=== PATIENT | female | born 1990 | race Caucasian/White ===

== ENCOUNTER 2018-04-03 08:47 | Emergency (ER) | payer SELFPAY ==
[~2018-04-03] VITALS: Ht 160 cm; Wt 75.0 kg
[~2018-04-03 08:47] MED LIST: BACTRIM DS1 TAB PO; CIPRO500 MG OR; NAPROSYN500 MG OR; NO HOME MEDS; ULTRAM50 MG OR
[2018-04-03 09:51] VITALS: BP 119/87
== END 2018-04-03 09:59 | disposition home or self-care (01) | DRG 153 ==
LOC: ED 08:47
DX: J06.9 Acute upper respiratory infection, unspecified (principal); F17.200 Nicotine dependence, unspecified, uncomplicated

== ENCOUNTER 2018-07-10 08:45 | Emergency (ER) | payer SELFPAY ==
[~2018-07-10] VITALS: Ht 160 cm; Wt 100.0 kg
[2018-07-10] MEDS ORDERED: ZPAK PO (09:39)
[2018-07-10 09:47] VITALS: BP 138/67
== END 2018-07-10 10:08 | disposition home or self-care (01) | DRG 153 ==
LOC: ED 08:45
DX: J02.0 Streptococcal pharyngitis (principal); F17.200 Nicotine dependence, unspecified, uncomplicated

== ENCOUNTER 2018-10-17 10:10 | Emergency (ER) | payer SELFPAY ==
[~2018-10-17] VITALS: Ht 160 cm; Wt 105.0 kg
[~2018-10-17 10:10] MED LIST changes: +ZPAK PO
[2018-10-17 11:03] LABS: IMMATURE GRANULOCYTES 0.5 % (0.0-5.0); MEAN CELL VOLUME 92.4 fL CALC (80.0-100.0); MEAN CORPUSCULAR HGB 31.6 pG CALC (26.0-32.0); MEAN CORPUSCULAR HGB CONC 34.2 g/L CALC (32.0-36.0); NEUT# 14.76 thou/uL (2.00-7.15); RED BLOOD COUNT 4.97 mill/uL (4.20-5.60); RED CELL DISTRI WIDTH 11.8 % (11.5-15.5)
[2018-10-17 11:10] LABS: ALKALINE PHOSPHATASE 120 u/l (38-126); ANION GAP 18 (6-22 (CALC)); BUN 15 mg/dL (7-17); BUN/CREATININE RATIO 24 (12-20 (CALC)); CARBON DIOXIDE 23 mmol/l (22-30); CHLORIDE 104 mmol/l (95-108); CREATININE 0.6 mg/dL (0.5-1.0); GFR > 60 ML/MIN (>=60 (CALC)); GFR FOR AFR.AMER. > 60 ML/MIN (>=60 (CALC)); POTASSIUM 4.3 mmol/l (3.5-5.1); SGOT/AST 25 u/l (14-36); SODIUM 140 mmol/l (137-146)
[2018-10-17 11:10] LABS: URINE BILIRUBIN - DIPSTICK NEGATIVE (NEGATIVE); URINE BLOOD DIPSTICK TRACE-INTACT (NEGATIVE); URINE COLOR YELLOW; URINE GLUCOSE - DIPSTICK NEGATIVE (NEGATIVE); URINE KETONE NEGATIVE (NEGATIVE); URINE NITRITE - DIPSTICK NEGATIVE (Negative); URINE PROTEIN - DIPSTICK TRACE mg/dL (NEG-TRACE); URINE SPECIFIC GRAVITY >=1.030; URINE UROBILINOGEN - DIPSTICK 0.2 E.U./dL (0.2)
[2018-10-17 11:18] LABS: URINE LEUK ESTERASE TRACE (NEGATIVE)
[2018-10-17 11:19] LABS: BARBITURATES NEGATIVE (NEGATIVE); COCAINE NEGATIVE (NEGATIVE); METHADONE NEGATIVE (NEGATIVE); OXCYCODONE NEGATIVE (NEGATIVE); TETRAHYDROCANNABIONOL POSITIVE (NEGATIVE); TRICYLIC ANTIDEPRESSANTS NEGATIVE (NEGATIVE)
[2018-10-17 11:22] LABS: ALBUMIN 5.1 g/dL (3.2-5.0); BILIRUBIN, TOTAL 0.5 mg/dL (0.0-1.4); HEMATOCRIT 45.9 % (37.0-47.0); HEMOGLOBIN 15.7 g/dl (12.0-16.0); TOTAL PROTEIN 8.8 g/dL (6.3-8.2)
[2018-10-17] MEDS ORDERED: ZOFRAN4 MG/TAB PO (12:40)
[2018-10-17] MEDS ORDERED: DICYCLOMINE20 MG PO (12:40)
[2018-10-17 12:44] VITALS: BP 114/79
== END 2018-10-17 12:54 | disposition home or self-care (01) | DRG 918 ==
LOC: ED 10:10
PROVIDERS: Emergency Medicine
DX: T62.91XA Toxic effect of unspecified noxious substance eaten as food, accidental (unintentional), initial encounter (principal)

== ENCOUNTER 2019-03-04 14:26 | Emergency (ER) | payer SELFPAY ==
[~2019-03-04] VITALS: Ht 160 cm; Wt 97.7 kg
[~2019-03-04 14:26] MED LIST changes: +DICYCLOMINE20 MG PO; +ZOFRAN4 MG/TAB PO
[2019-03-04 15:11] LABS: IMMATURE GRANULOCYTES 0.5 % (0.0-5.0); MEAN CELL VOLUME 91.9 fL CALC (80.0-100.0); MEAN CORPUSCULAR HGB 31.3 pG CALC (26.0-32.0); NEUT# 7.82 thou/uL (2.00-7.15); RED BLOOD COUNT 4.06 mill/uL (4.20-5.60); RED CELL DISTRI WIDTH 11.8 % (11.5-15.5)
[2019-03-04 15:12] LABS: URINE BILIRUBIN - DIPSTICK NEGATIVE (NEGATIVE); URINE BLOOD DIPSTICK MODERATE (NEGATIVE); URINE COLOR YELLOW; URINE GLUCOSE - DIPSTICK NEGATIVE (NEGATIVE); URINE KETONE NEGATIVE (NEGATIVE); URINE LEUK ESTERASE NEGATIVE (NEGATIVE); URINE NITRITE - DIPSTICK NEGATIVE (Negative); URINE PROTEIN - DIPSTICK 100 mg/dL (NEG-TRACE); URINE SPECIFIC GRAVITY >=1.030
[2019-03-04 15:13] LABS: HEMATOCRIT 37.3 % (37.0-47.0); HEMOGLOBIN 12.7 g/dl (12.0-16.0)
[2019-03-04 15:29] LABS: ALBUMIN 4.2 g/dL (3.2-5.0); ALKALINE PHOSPHATASE 89 u/l (38-126); ANION GAP 15 (6-22 (CALC)); BUN 11 mg/dL (7-17); BUN/CREATININE RATIO 19 (12-20 (CALC)); CARBON DIOXIDE 22 mmol/l (22-30); CHLORIDE 105 mmol/l (95-108); CREATININE 0.6 mg/dL (0.5-1.0); GFR > 60 ML/MIN (>=60 (CALC)); GFR FOR AFR.AMER. > 60 ML/MIN (>=60 (CALC)); LIPASE 42 u/l (23-300); POTASSIUM 3.8 mmol/l (3.5-5.1); SGOT/AST 29 u/l (14-36); SODIUM 138 mmol/l (137-146); TOTAL PROTEIN 7.6 g/dL (6.3-8.2)
[2019-03-04 15:30] LABS: BILIRUBIN, TOTAL 0.8 mg/dL (0.0-1.4)
[2019-03-04 15:34] LABS: URINE SQUAMOUS EPITHELIAL CELL FEW EPI/hpf (0-FEW)
[2019-03-04] MEDS ORDERED: [UNRECOGNIZED DRUG - OTHER] PO (17:21)
[2019-03-04 17:35] VITALS: BP 93/61
== END 2019-03-04 17:35 | disposition home or self-care (01) | DRG 833 ==
LOC: ED 14:26
DX: O26.899 Other specified pregnancy related conditions, unspecified trimester (principal); R10.32 Left lower quadrant pain; Z3A.00 Weeks of gestation of pregnancy not specified

== ENCOUNTER 2019-03-06 14:28 | Emergency (ER) | payer SELFPAY ==
[~2019-03-06] VITALS: Ht 160 cm; Wt 105.0 kg
[~2019-03-06 14:28] MED LIST changes: +[UNRECOGNIZED DRUG - OTHER] PO
[2019-03-06 16:15] VITALS: BP 127/74
== END 2019-03-06 16:15 | disposition home or self-care (01) | DRG 833 ==
LOC: ED 14:28
DX: O20.0 Threatened abortion (principal); Z3A.00 Weeks of gestation of pregnancy not specified

== ENCOUNTER 2019-04-02 19:49 | Emergency (ER) | payer SELFPAY ==
[2019-04-02] MEDS ORDERED: CLEOCIN300 MG PO (20:24)
[2019-04-02 20:30] VITALS: BP 154/89
== END 2019-04-02 20:30 | disposition home or self-care (01) | DRG 159 ==
LOC: ED 19:49
DX: K04.7 Periapical abscess without sinus (principal)

== ENCOUNTER 2019-04-22 | Emergency (ER) | payer SELFPAY ==
[~2019-04-22] MED LIST changes: +CLEOCIN300 MG PO
== END 2019-04-22 12:25 | disposition home or self-care (01) | DRG 153 ==
DX: J32.9 Chronic sinusitis, unspecified (principal)

== ENCOUNTER 2019-09-15 09:51 | Emergency (ER) | payer SELFPAY ==
[~2019-09-15] VITALS: Ht 160 cm; Wt 90.9 kg
[2019-09-15 10:33] LABS: HEMATOCRIT 40.6 % (37.0-47.0); HEMOGLOBIN 13.6 g/dl (12.0-16.0); IMMATURE GRANULOCYTES 0.7 % (0.0-5.0); MEAN CELL VOLUME 92.9 fL CALC (80.0-100.0); MEAN CORPUSCULAR HGB 31.1 pG CALC (26.0-32.0); MEAN CORPUSCULAR HGB CONC 33.5 g/dL CAL (32.0-36.0); NEUT# 8.03 thou/uL (2.00-7.15); RED BLOOD COUNT 4.37 mill/uL (4.20-5.60); RED CELL DISTRI WIDTH 11.8 % (11.5-15.5)
[2019-09-15 11:05] LABS: ALBUMIN 4.7 g/dL (3.2-5.0); ALKALINE PHOSPHATASE 118 u/l (38-126); ANION GAP 13 (6-22 (CALC)); BUN 11 mg/dL (7-17); BUN/CREATININE RATIO 17 (12-20 (CALC)); CARBON DIOXIDE 24 mmol/l (22-30); CHLORIDE 103 mmol/l (95-108); CREATININE 0.7 mg/dL (0.5-1.0); GFR > 60 ML/MIN (>=60 (CALC)); GFR FOR AFR.AMER. > 60 ML/MIN (>=60 (CALC)); SGOT/AST 39 u/l (14-36); SODIUM 135 mmol/l (137-146); TOTAL PROTEIN 7.9 g/dL (6.3-8.2)
[2019-09-15 11:08] LABS: BILIRUBIN, TOTAL 0.4 mg/dL (0.0-1.4)
[2019-09-15 12:57] VITALS: BP 97/66
--- NOTE | 2019-09-20 12:41 | NUR ---
Per [facility]: Covid swab was "spilled" and unable to test. Gloria from [facility] notified the patient and offered to schedule the patient for a re-swab. Patient denies. Patient states she feels fine.
== END 2019-09-15 12:57 | disposition home or self-care (01) | DRG 313 ==
LOC: ED 09:51
PROVIDERS: Family Medicine
DX: R07.89 Other chest pain (principal); R09.89 Other specified symptoms and signs involving the circulatory and respiratory systems; Z20.828 Contact with and (suspected) exposure to other viral communicable diseases

== ENCOUNTER 2019-10-08 07:05 | Emergency (ER) | payer SELFPAY ==
[~2019-10-08] VITALS: Ht 160 cm; Wt 95.0 kg
[2019-10-08] MEDS ORDERED: CLINDAMYCIN300 M1 PO (07:24)
[2019-10-08] MEDS ORDERED: TYLENOL # 31 TA1 PO (07:24)
[2019-10-08 07:26] VITALS: BP 128/69
== END 2019-10-08 07:32 | disposition home or self-care (01) | DRG 159 ==
LOC: ED 07:05
DX: K04.7 Periapical abscess without sinus (principal); K02.9 Dental caries, unspecified

== ENCOUNTER 2019-10-23 17:25 | Emergency (ER) | payer SELFPAY ==
[~2019-10-23] VITALS: Ht 160 cm; Wt 95.0 kg
[~2019-10-23 17:25] MED LIST changes: +CLINDAMYCIN300 M1 PO; +TYLENOL # 31 TA1 PO
[2019-10-23 18:41] LABS: HEMATOCRIT 41.5 % (37.0-47.0); HEMOGLOBIN 13.9 g/dl (12.0-16.0); IMMATURE GRANULOCYTES 0.4 % (0.0-5.0); MEAN CELL VOLUME 93.3 fL CALC (80.0-100.0); MEAN CORPUSCULAR HGB 31.2 pG CALC (26.0-32.0); MEAN CORPUSCULAR HGB CONC 33.5 g/dL CAL (32.0-36.0); NEUT# 4.28 thou/uL (2.00-7.15); RED BLOOD COUNT 4.45 mill/uL (4.20-5.60); RED CELL DISTRI WIDTH 11.9 % (11.5-15.5)
[2019-10-23 18:52] LABS: URINE BILIRUBIN - DIPSTICK NEGATIVE (NEGATIVE); URINE BLOOD DIPSTICK NEGATIVE (NEGATIVE); URINE COLOR YELLOW; URINE GLUCOSE - DIPSTICK NEGATIVE (NEGATIVE); URINE KETONE TRACE mg/dL (NEGATIVE); URINE LEUK ESTERASE TRACE (NEGATIVE); URINE NITRITE - DIPSTICK NEGATIVE (Negative); URINE PROTEIN - DIPSTICK NEGATIVE (NEG-TRACE); URINE SPECIFIC GRAVITY >=1.030; URINE UROBILINOGEN - DIPSTICK 0.2 E.U./dL (0.2)
[2019-10-23 19:04] LABS: ALBUMIN 4.9 g/dL (3.2-5.0); ALKALINE PHOSPHATASE 108 u/l (38-126); ANION GAP 14 (6-22 (CALC)); BUN 15 mg/dL (7-17); BUN/CREATININE RATIO 20 (12-20 (CALC)); CARBON DIOXIDE 22 mmol/l (22-30); CHLORIDE 103 mmol/l (95-108); CREATININE 0.7 mg/dL (0.5-1.0); GFR > 60 ML/MIN (>=60 (CALC)); GFR FOR AFR.AMER. > 60 ML/MIN (>=60 (CALC)); LIPASE 57 u/l (23-300); POTASSIUM 3.8 mmol/l (3.5-5.1); SGOT/AST 38 u/l (14-36); SODIUM 135 mmol/l (137-146); TOTAL PROTEIN 8.3 g/dL (6.3-8.2)
[2019-10-23 19:07] LABS: BILIRUBIN, TOTAL 0.6 mg/dL (0.0-1.4)
[2019-10-23 20:17] VITALS: BP 122/82
== END 2019-10-23 20:12 | disposition home or self-care (01) | DRG 204 ==
LOC: ED 17:25
DX: R07.81 Pleurodynia (principal)
CPT/HCPCS: Q9967

== ENCOUNTER 2020-01-02 13:05 | Emergency (ER) | payer SELFPAY ==
[~2020-01-02] VITALS: Ht 162.6 cm; Wt 86.4 kg
[2020-01-02] MEDS ORDERED: ZPAK PO (13:46)
[2020-01-02 14:19] VITALS: BP 118/75
== END 2020-01-02 14:19 | disposition home or self-care (01) | DRG 153 ==
LOC: ED 13:05
DX: J02.9 Acute pharyngitis, unspecified (principal); Z88.0 Allergy status to penicillin; Z20.818 Contact with and (suspected) exposure to other bacterial communicable diseases

== ENCOUNTER 2021-10-13 16:12 | Emergency (ER) | payer SELFPAY ==
[~2021-10-13] VITALS: Ht 162.6 cm; Wt 101.0 kg
[2021-10-13 16:23] VITALS: BP 94/81
[2021-10-13] MEDS ORDERED: ZPAK PO (16:32)
[2021-10-13] MEDS ORDERED: ALL DAY10 MG PO (16:32)
[2021-10-13] MEDS ORDERED: FLONASE AL50 MCG/ACT (16:32)
[2021-10-13 16:43] VITALS: BP 94/81
== END 2021-10-13 16:49 | disposition home or self-care (01) | DRG 153 ==
LOC: ED 16:12
DX: J02.9 Acute pharyngitis, unspecified (principal); J30.2 Other seasonal allergic rhinitis

== ENCOUNTER 2022-07-12 09:56 | Inpatient (IN) | payer SELFPAY ==
[~2022-07-12] VITALS: Ht 162.6 cm; Wt 84.2 kg
[2022-07-12] VITALS (15 sets, daily range): BP systolic 58–133; BP diastolic 42–93
[~2022-07-12 09:56] MED LIST changes: +ALL DAY10 MG PO; +FLONASE AL50 MCG/ACT
--- NOTE | 2022-07-12 10:15 | NUR ---
PT WHEELED TO 3 FOR MD NINA AT BEDSIDE. PT'S RT FOOT SWOLLEN, RED. CONNECTED TO VS MONITOR.
[2022-07-12 10:40] LABS: HEMATOCRIT 39.3 % (37.0-47.0); HEMOGLOBIN 13.4 g/dl (12.0-16.0); IMMATURE GRANULOCYTES 1.8 % (0.0-5.0); MEAN CORPUSCULAR HGB 31.4 pG CALC (26.0-32.0); MEAN CORPUSCULAR HGB CONC 34.1 g/dL CAL (32.0-36.0); PLATELET COUNT 191 thou/uL (130-400); RED BLOOD COUNT 4.27 mill/uL (4.20-5.60); RED CELL DISTRI WIDTH 11.9 % (11.5-15.5)
--- NOTE | 2022-07-12 10:41 | NUR ---
PT AND VITALS STABLE, PT RESTING. EXTRA PILLOW AND BLANKET GIVEN
[2022-07-12 10:44] LABS: ANION GAP 16 (6-22 (CALC)); BILIRUBIN, TOTAL 0.6 mg/dL (0.02-1.3); BUN 16 mg/dL (7-17); BUN/CREATININE RATIO 18 (12-20 (CALC)); CARBON DIOXIDE 22 mmol/l (22-30); CHLORIDE 101 mmol/l (95-108); CREATININE 0.9 mg/dL (0.5-1.0); GFR FOR AFR.AMER. > 60 ML/MIN (>=60 (CALC)); GFR OTHER RACES > 60 ML/MIN (>=60 (CALC)); POTASSIUM 3.2 mmol/l (3.5-5.1); SGOT/AST 28 u/l (14-36); SODIUM 136 mmol/l (137-146); TOTAL PROTEIN 7.7 g/dL (6.3-8.2)
[2022-07-12 10:45] LABS: ALBUMIN 3.9 g/dL (3.2-5.0); ALKALINE PHOSPHATASE 187 u/l (38-126)
[2022-07-12 10:51] LABS: MANUAL DIFFERENTIAL YES
--- NOTE | 2022-07-12 10:52 | NUR ---
WBC 31.0, MD MADE AWARE
[2022-07-12 10:55] LABS: BAND 4 % (0-8)
--- NOTE | 2022-07-12 10:59 | NUR ---
PT TOOK NAPROXEN PRIOR TO ARRIVAL-
--- NOTE | 2022-07-12 12:08 | NUR ---
PROCAL 0.605, LACTIC 2.5, MD MADE AWARE
--- NOTE | 2022-07-12 12:26 | NUR ---
PT AND VITALS STABLE. RESTING
--- NOTE | 2022-07-12 13:38 | NUR ---
PT AND VITALS STABLE. PT RESTING. FOOD GIVEN
--- NOTE | 2022-07-12 13:56 | NUR ---
PT STABLE, BEING ADMITTED AND REPORT CALLED TO [facility]. SYMPTOMS IMPROVED
--- NOTE | 2022-07-12 20:50 | NUR ---
PT RESTING IN BED AMBULATED FROM BATHROOM, ER INFORMED CHOIR ACCOMPANIST PT HR SUSTATINING IN THE 130-140S, PT C/O FEELING WARM, TEMP 99.9. BLANKETS REMOVED, ICE PACKS PROVIDED. DISCUSSED POC, PT C/O ANXIETY. MD NOTIFIED AND NEW ORDER OBTAINED. NOTED EDEMA TO RLE, DOPPLER USED FOR PEDAL PULSE. TENDER TO TOUCH, REDDENED AND SWOLLEN, NO OPEN AREA, PHOTO OBTAINED; SEE CHART FOR PHOTO. PT MEDICATED PER MAY. ASSESSMENT COMPLETED, CALL LIGHT IN REACH,CONTINUE TO MONITOR.
[2022-07-13] VITALS (7 sets, daily range): BP systolic 115–132; BP diastolic 67–84
--- NOTE | 2022-07-13 | NUR ---
PT RESTING IN BED WITH EYES CLOSED, NO SIGNS OF DISTRESS NOTED, RESP EVEN AND UNLABORED. CALL LIGHT IN REACH,CONTINUE TO MONITOR.
--- NOTE | 2022-07-13 04:00 | NUR ---
PT RESTING IN BED, C/O PAIN TO RLE PT MEDICATED PER MAR, NO SIGNS OF DISTRESS NOTED, RESP EVEN AND UNLABORED. CALL LIGHT IN REACH,CONTINUE TO MONITOR.
[2022-07-13 05:08] LABS: BASO% 0.1 % (0-3); EOS% 1.8 % (0-8); HEMATOCRIT 35.5 % (37.0-47.0); HEMOGLOBIN 11.6 g/dl (12.0-16.0); LYMPH% 6.4 % (15-41); MEAN CELL VOLUME 94.9 fL CALC (80.0-100.0); MEAN CORPUSCULAR HGB CONC 32.7 g/dL CAL (32.0-36.0); MONO% 3.6 % (2-13); NEUT# 19.97 thou/uL (2.00-7.15); NEUT% 87.1 % (42-76); RED BLOOD COUNT 3.74 mill/uL (4.20-5.60); RED CELL DISTRI WIDTH 12.4 % (11.5-15.5)
[2022-07-13 05:35] LABS: ALKALINE PHOSPHATASE 165 u/l (38-126); ANION GAP 15 (6-22 (CALC)); BUN 6 mg/dL (7-17); BUN/CREATININE RATIO 9 (12-20 (CALC)); CARBON DIOXIDE 23 mmol/l (22-30); CHLORIDE 103 mmol/l (95-108); CREATININE 0.7 mg/dL (0.5-1.0); GFR FOR AFR.AMER. > 60 ML/MIN (>=60 (CALC)); GFR OTHER RACES > 60 ML/MIN (>=60 (CALC)); POTASSIUM 3.4 mmol/l (3.5-5.1); SGOT/AST 30 u/l (14-36); SODIUM 137 mmol/l (137-146)
[2022-07-13 05:46] LABS: ALBUMIN 2.7 g/dL (3.2-5.0); BILIRUBIN, TOTAL 0.1 mg/dL (0.02-1.3); TOTAL PROTEIN 5.4 g/dL (6.3-8.2)
--- NOTE | 2022-07-13 08:00 | NUR ---
SHIFT CHANGE REPORT, PT AWAKE ALERT AND ORIENTED RESTING IN BED, C/O PAIN TO RIGHT LOWER LEG @ 7/10, IVF INFUSING, TELE MONITOR IN PLACE, CALL MATOS IN REACH AND BED LOCKED IN LOWEST POSITION.
--- NOTE | 2022-07-13 12:00 | NUR ---
RESTING IN BED, RIGHT LEG ELEVATED ON PILLOWS, FLULID FILLED BLISTERS INTACT ON TOP OF FOOT WITH REDNESS EXTENDING 3/4 WAYS UP TO KNEE, AREA MARKED WITH PERMANENT PEN. DR NAIR ROUNDED AND WROTE ORDERS FOR ID TO CONSULT AND ASSESS.
--- NOTE | 2022-07-13 12:09 | NUR ---
BOOKED AN INFECTIOUS DISEASE CONSULT WITH DR WILLOUGHBY VIA THE [facility] AT 1159 HRS.
--- NOTE | 2022-07-13 16:00 | NUR ---
EDEMA, REDNESS AND BLISTERS RECEEDING, PT REPORTS PAIN IS ALSO BETTER.
--- NOTE | 2022-07-13 19:16 | NUR ---
PT RESTING IN BED WATCHING TV, NO SIGNS OF DISTRESS NOTED, RESP EVEN AND UNLABORED. PT ALERT AND ORIENTED X3, PT C/O PAIN TO RLE PT MEDICATED PER MAR. NOTED RLE ELEVATED ON PILLOW, REDDNENED, NO OPEN AREAS, NOTED LARGE BLISTER INTACT TO ANTERIOR ANKLE. ASSESSMENT COMPLETED, CALL LIGHT IN REACH, CONTINUE TO MONITOR.
--- NOTE | 2022-07-14 | NUR ---
PT RESTING IN BED WITH EYES CLOSED, NO SIGNS OF DISTRESS NOTED, RESP EVEN AND UNLABORED. CALL LIGHT IN REACH,CONTINUE TO MONITOR.
--- NOTE | 2022-07-14 03:54 | NUR ---
PT RESTING IN BED, PT C/O PAIN TO RLE, PT MEDICATED PER MAR. CALL LIGHT IN REACH,CONTINUE TO MONITOR.
[2022-07-14 05:08] VITALS: BP 109/78
[2022-07-14 05:41] LABS: BASO% 0.1 % (0-3); EOS% 1.4 % (0-8); HEMATOCRIT 31.9 % (37.0-47.0); HEMOGLOBIN 10.5 g/dl (12.0-16.0); IMMATURE GRANULOCYTES 1.2 % (0.0-5.0); LYMPH% 13.3 % (15-41); MEAN CELL VOLUME 94.9 fL CALC (80.0-100.0); MEAN CORPUSCULAR HGB 31.3 pG CALC (26.0-32.0); MEAN CORPUSCULAR HGB CONC 32.9 g/dL CAL (32.0-36.0); MONO% 8.4 % (2-13); NEUT# 13.68 thou/uL (2.00-7.15); NEUT% 75.6 % (42-76); RED BLOOD COUNT 3.36 mill/uL (4.20-5.60); RED CELL DISTRI WIDTH 12.7 % (11.5-15.5)
[2022-07-14 06:12] LABS: ALBUMIN 2.4 g/dL (3.2-5.0); ALKALINE PHOSPHATASE 141 u/l (38-126); ANION GAP 11 (6-22 (CALC)); BILIRUBIN, TOTAL 0.1 mg/dL (0.02-1.3); BUN 5 mg/dL (7-17); BUN/CREATININE RATIO 8 (12-20 (CALC)); CARBON DIOXIDE 24 mmol/l (22-30); CHLORIDE 105 mmol/l (95-108); CREATININE 0.7 mg/dL (0.5-1.0); GFR FOR AFR.AMER. > 60 ML/MIN (>=60 (CALC)); GFR OTHER RACES > 60 ML/MIN (>=60 (CALC)); POTASSIUM 3.1 mmol/l (3.5-5.1); SGOT/AST 18 u/l (14-36); SODIUM 138 mmol/l (137-146)
[2022-07-14 07:21] VITALS: BP 111/77
--- NOTE | 2022-07-14 08:00 | NUR ---
RECIEVED PATIENT IN STABLE CONDITION. NO S/S OF DISTRESS, PATIENT SAFETY MEASURES IN PLACE.
--- NOTE | 2022-07-14 12:00 | NUR ---
PATIENT IV REPLACED, PATIENT SHOWERED, LINENS CHANGES, DR. TORREZ IN TO OCONSULT, SUGGESTED TO WRAP WITH SALVADOR BANDABE TO DECREASE SWELLING AND DRAIN FLUID COLLECTION. TYLENOL GIVEN FOE PAIN , EFFECTIVE, PATIENT RESTING .
[2022-07-14 12:27] VITALS: BP 129/85
--- NOTE | 2022-07-14 15:43 | NUR ---
S: MARCO ANTONIOHELDER Brina is a 31 F who presents with soft skin tissue infection. All medications in patient's chart were reviewed. O: VS: BP 128/85, P89, RR 18, T 97.2F W 84 kg, HT 5 FT 4in, Scr= 0.7,CrCl= 80 ml/min A: Blood culture is pending. P: Patient is on Azactam 2gm IV Q8H. Flagyl 500mg q8h Vancomycin ordered for pharmacy to dose. Vancomycin 1.25gm IV Q8H. Vancomycin trough is drawn before the 4th dose on 07/14/22 at 19:30. Vancomycin goal trough is between 10-15 mcg/ml. Pharmacy will follow and advise on antibiotics use as needed.
[2022-07-14 15:53] VITALS: BP 126/77
[2022-07-14 19:17] VITALS: BP 133/75
--- NOTE | 2022-07-14 19:45 | NUR ---
PERFORMED BEDSIDE REPORT WITH DAYSHIFT NURSE. PT NOTED LAYING SUPINE IN BED WITH RLE ELEVATED ON PILLOWS, WRAPPED IN SALVADOR BANDAGE AND DRY YELLOW DRAINAGE PRESENT. PT COMPLAINED OF PAIN 8 OUT OF 10 AT THIS TIME AND TEMP 100.4 TAKEN TEMPORALLY. ADMINISTERED MEDICATION FOR BOTH PAIN AND FEVER PER EMAR. WILL REASSESS. PT EDUCATED ON PLAN OF CARE FOR TONIGHT. CALL LIGHT WITHIN REACH AND SAFETY PRECAUTIONS IN PLACE.
--- NOTE | 2022-07-15 | NUR ---
PT LAYING IN BED SLEEPING, SUPINE WITH RLE STILL ELEVATED ON PILLOWS. NO S/S OF DISTRESS. CALL LIGHT WITHIN REACH AND SAFETY PRECAUTIONS IN PLACE.
[2022-07-15 00:51] VITALS: BP 105/69
[2022-07-15 04:58] VITALS: BP 113/75
[2022-07-15 05:29] LABS: BASO% 0.3 % (0-3); EOS% 3.1 % (0-8); HEMOGLOBIN 10.1 g/dl (12.0-16.0); IMMATURE GRANULOCYTES 3.9 % (0.0-5.0); LYMPH% 20.6 % (15-41); MEAN CELL VOLUME 96.6 fL CALC (80.0-100.0); MEAN CORPUSCULAR HGB 31.5 pG CALC (26.0-32.0); MEAN CORPUSCULAR HGB CONC 32.6 g/dL CAL (32.0-36.0); MONO% 9.1 % (2-13); NEUT# 8.46 thou/uL (2.00-7.15); RED BLOOD COUNT 3.21 mill/uL (4.20-5.60); RED CELL DISTRI WIDTH 13.1 % (11.5-15.5)
[2022-07-15 05:43] LABS: ALBUMIN 2.6 g/dL (3.2-5.0); ALKALINE PHOSPHATASE 117 u/l (38-126); ANION GAP 8 (6-22 (CALC)); BUN 7 mg/dL (7-17); BUN/CREATININE RATIO 12 (12-20 (CALC)); CARBON DIOXIDE 28 mmol/l (22-30); CHLORIDE 105 mmol/l (95-108); CREATININE 0.6 mg/dL (0.5-1.0); GFR FOR AFR.AMER. > 60 ML/MIN (>=60 (CALC)); GFR OTHER RACES > 60 ML/MIN (>=60 (CALC)); POTASSIUM 3.4 mmol/l (3.5-5.1); SGOT/AST 14 u/l (14-36); SODIUM 138 mmol/l (137-146); TOTAL PROTEIN 5.6 g/dL (6.3-8.2)
--- NOTE | 2022-07-15 05:55 | NUR ---
PT IS LAYING IN BED, SLEEPING COMFORTABLY. RLE STILL ELEVATED ON PILLOWS AT THIS TIME. NO S/S OF DISTRESS. CALL LIGHT WITHIN REACH AND SAFETY PRECAUTIONS IN [place].
[2022-07-15 07:46] VITALS: BP 119/83
--- NOTE | 2022-07-15 08:00 | NUR ---
PT RESTING IN BED RIGHT FOOT ELEVATED. STATES PAIN FROM SWELLING OF THE LEG. ICE PACK PROVIDED. ASSESSMENT COMPLETED. EDUCATED PT IN PLAN OF CARE. PT INDICATED UNDERSTANDING. TELE IN PLACE,CONTINOUS MONITORING PER ED. FALL/DAFTEY PRECAUTION IN PLACE. CALL LIGHT WITHIN REACH
--- NOTE | 2022-07-15 10:19 | NUR ---
S: MARCO ANTONIOHELDER Brian is a 31 F who presents with right lower extremity cellulitis. All medications in patient's chart were reviewed. O: VS: BP 119/83, P 94, RR 21,T 97.5F W 84 kg, HT 5Ft 4in, Scr=0.7, CrCl= 80 ml/min Vancomycin trough 07/14/22@1929 = 12 A: Blood culture is pending. Vancomycin trough within goal therapeutic range. P: Patient is on Azactam 2gm IV Q8H. Vancomycin ordered for pharmacy to dose. Continue Vancomycin 1.25gm IV Q8H. Vancomycin trough will be drawn before the dose on 07/16/22 at 3:30. Vancomycin goal trough is between 10-15 mcg/ml. Pharmacy will follow and advise on antibiotics use as needed.
--- NOTE | 2022-07-15 11:39 | NUR ---
PT RESTING IN BED. STATES NO PAIN/ NEEDS AT THIS TIME. BREATHING EVEN AND UNLABORED. RIGHT LEG ELEVATED ON PILLOWS. FALL/SAFTEY PRECAUTION IN PLACE. CALL LIGHT WITHIN REACH
[2022-07-15 11:50] VITALS: BP 119/80
--- NOTE | 2022-07-15 16:00 | NUR ---
PT RESTING IN BED WITH RIGHT LEG ELEVATED. STATES NO PAIN AT THIS TIME. DRESSING IS CLEQAN/DRY AND INTACT. BREATHING EVEN AND UNLABORED. FALL/SAFTEY PRECAUTION IN PLACE. CALL LIGHT WITHIN REACH
[2022-07-15 16:08] VITALS: BP 125/82
[2022-07-15 18:19] VITALS: BP 125/78
--- NOTE | 2022-07-15 18:30 | NUR ---
PT WOUND DRESSING CHANGED, PT TOLERATED WELL.FALL/SAFTEY PRECAUTION IN PLACE. CALL RICKEY JADE REACH
--- NOTE | 2022-07-15 19:31 | NUR ---
PERFORMED BEDSIDE REPORT WITH DAYSHIFT NURSE. PT NOTED LAYING BACK IN BED WITH RLE ELEVATED ON PILLOWS, SALVADOR BANDAGE WRAPPED, CLEAN AND INTACT. PT DENIES ANY PAIN AT THIS TIME AND STATES FEELING MUCH BETTER. EDUCATED PT ON CONITNUED PLAN OF CARE FOR TONIGHT. CALL LIGHT WITHIN REACH AND SAFETY PRECAUTIONS IN PLACE.
--- NOTE | 2022-07-16 | NUR ---
PT LAYING IN BED SLEEPING COMFORTABLY WITH RLE ELEVATED ON PILLOWS. NO S/S OF DISTRESS AT THIS TIME. CALL LIGHT WITHIN REACH AND SAFETY PRECAUTIONS IN PLACE.
[2022-07-16 00:06] VITALS: BP 117/69
[2022-07-16 03:33] LABS: BASO% 0.4 % (0-3); EOS% 3.2 % (0-8); HEMATOCRIT 33.2 % (37.0-47.0); HEMOGLOBIN 10.6 g/dl (12.0-16.0); LYMPH% 20.8 % (15-41); MEAN CELL VOLUME 96.8 fL CALC (80.0-100.0); MEAN CORPUSCULAR HGB 30.9 pG CALC (26.0-32.0); MEAN CORPUSCULAR HGB CONC 31.9 g/dL CAL (32.0-36.0); MONO% 7.7 % (2-13); NEUT# 8.63 thou/uL (2.00-7.15); NEUT% 60.9 % (42-76); RED BLOOD COUNT 3.43 mill/uL (4.20-5.60)
[2022-07-16 03:56] LABS: ALBUMIN 2.7 g/dL (3.2-5.0); ALKALINE PHOSPHATASE 106 u/l (38-126); ANION GAP 8 (6-22 (CALC)); BUN 5 mg/dL (7-17); BUN/CREATININE RATIO 8 (12-20 (CALC)); CARBON DIOXIDE 28 mmol/l (22-30); CHLORIDE 106 mmol/l (95-108); CREATININE 0.7 mg/dL (0.5-1.0); GFR FOR AFR.AMER. > 60 ML/MIN (>=60 (CALC)); GFR OTHER RACES > 60 ML/MIN (>=60 (CALC)); SGOT/AST 18 u/l (14-36); SODIUM 138 mmol/l (137-146); TOTAL PROTEIN 5.9 g/dL (6.3-8.2)
--- NOTE | 2022-07-16 04:20 | NUR ---
PT DID COMPLAIN OF PAIN 9 OUT OF 10 IN RLE. PAIN MEDICATION ADMINISTERED PER EMAR. CALL LIGHT WITHIN REACH AND SAFETY PRECAUTIONS IN PLACE.
[2022-07-16 04:37] VITALS: BP 118/78
[2022-07-16 07:02] VITALS: BP 100/76
--- NOTE | 2022-07-16 08:00 | NUR ---
PT ALERT AND ORIENTED.ABLE TO MAKE NEEDS KNOWN.NO C/O PAIN.RIGHT LEG ELEVATED ON PILLOWS.DRESSING TO RIGHT FOOT CDI AND SALVADOR WRAPPED.PT EDUCATED ABOUT WOUND CARE OF FOOT.VERBALIZED UNDERSTANDING OF INSTRUCTIONS.NO DISTRESS NOTED.SAFETY PRECAUTIONS IN PLACE.CALL LIGHT WITHIN REACH.
[2022-07-16] MEDS ORDERED: CIPROFLOXACN500 MG PO (11:32)
[2022-07-16] MEDS ORDERED: DOXYCYCLINE100 MG PO (11:32)
[2022-07-16] MEDS ORDERED: TRAMADOL HCL50 MG PO (12:11)
== END 2022-07-16 13:31 | disposition home or self-care (01) | DRG 603 ==
LOC: ED 09:56 → ED-I 12:50 → ED 13:30 → MS2 13:31
PROVIDERS: Family Medicine; Nurse Practitioner Family; ADMIT Internal Medicine; ATTEND Internal Medicine
DX: L03.115 Cellulitis of right lower limb (principal); S90.821A Blister (nonthermal), right foot, initial encounter; E87.6 Hypokalemia; F19.11 Other psychoactive substance abuse, in remission; R82.5 Elevated urine levels of drugs, medicaments and biological substances; X58.XXXA Exposure to other specified factors, initial encounter
CPT/HCPCS: J1650; J3370; Q9967; S0073